=== PATIENT | male | born 1965 | race Caucasian/White ===

== ENCOUNTER 2024-05-05 11:41 | Outpatient (OUT) | payer MEDICARE, SELFPAY ==
--- NOTE | 2024-05-05 | XR_ITS ---
The [address] [address] Patient Name: EZIO PEÑA MRN: [id number] date: 1965 Sex: M Assigned Patient Location: Current Patient Location: Accession/Order Number: [id number] Exam Date: 05/05/2024 11:45 Report Date: 05/08/2024 06:11 At the request of: JUHI RAMON Procedure: XR lumbar spine min 4V EXAMINATION: XR lumbar spine min 4V HISTORY: LUMBAR PAIN COMPARISON: No relevant comparison available. FINDINGS: BONES: Prior compression fracture vertebroplasty of T12. Mechanical fusion L4-L5-S1 via bilateral pedicle screws and rods; no appreciable hardware fracture loosening. 11 mm anterior listhesis of L3 on 4; no appreciable change between neutral, flexion, extension. Posterior decompression L4-L5. Degenerative facet arthropathy versus fusion L3-L4 through L5-S1. DISC SPACES: Moderate narrowing L3-L4. Intervertebral spacers at L4-L5, L5-S1. PARASPINOUS: Negative. No paraspinous abnormality is seen. OTHER: Negative. XR/XR lumbar spine min 4V IMPRESSION: 1. Remote compression fracture and vertebroplasty of T12. 2. Posterior mechanical fusion L4-L5-S1 with intervertebral spacers and posterior decompression of L4 and L5; no appreciable hardware failure. 3. Grade 1, bordering on grade 2 anterior listhesis of L3 on L4. No appreciable change in alignment during flexion and extension. Electronically authenticated by: JUANIS ARROYO Date: 05/08/2024 06:11
== END 2024-05-05 11:42 | disposition home or self-care (01) ==
PROVIDERS: Visit Provider Orthopaedic Surgery Orthopaedic Surgery of the Spine
DX: M54.50 Low back pain, unspecified (principal); M48.54XA Collapsed vertebra, not elsewhere classified, thoracic region, initial encounter for fracture
CPT/HCPCS: 72110